=== PATIENT | female | born 1980 | race Two or more races ===

== ENCOUNTER 2019-10-06 09:52 | Emergency (ER) | payer OTHER ==
[~2019-10-06] VITALS: Ht 152.4 cm; Wt 97.5 kg
--- NOTE | 2019-10-06 09:55 | NUR ---
PT BIB SELF C/O CHEST AND BACK PAIN AND FEVER FOR 2 DAYS, PT IS AAOX4, NOT IN RESPIRATORY DISTRESS, HOOKED TO MOTORCYCLE MECHANIC, KEPT RESTED AND COMFORTABLE, WILL CONTINUE TO MONITOR.
--- NOTE | 2019-10-06 10:10 | NUR ---
SEEN AND EXAMINED BY .
--- NOTE | 2019-10-06 10:22 | NUR ---
CUT FILER AT BEDSIDE FOR XRAY.
--- NOTE | 2019-10-06 10:59 | NUR ---
COVID SWAB OBTAINED AND SENT TO LAB.
[2019-10-06 11:01] VITALS: BP 118/70
--- NOTE | 2019-10-06 11:01 | NUR ---
Patient given written and verbal discharge instructions. Patient verbalizes understanding of instructions. Patient is ambulatory with steady gait. Refuses offer of detention placement. Patient given list of available shelters in surrounding area.
== END 2019-10-06 11:02 | disposition home or self-care (01) ==
LOC: ER 09:52 → EDBD 09:52 → ER 11:02
DX: R07.9 Chest pain, unspecified (principal); R50.9 Fever, unspecified; Z20.828 Contact with and (suspected) exposure to other viral communicable diseases; Z59.0 Homelessness
CPT/HCPCS: 71045; 93005; 99285; C9803; U0003

== ENCOUNTER 2022-05-18 14:52 | Emergency (ER) | payer OTHER ==
[~2022-05-18] VITALS: Ht 154.9 cm; Wt 95.3 kg
[2022-05-18] MEDS ORDERED: METRONIDAZOLE 500 MG TABLET PO ONE (15:30)
[2022-05-18] MEDS ORDERED: DOXYCYCLINE HYCLATE (100 MG) 100 MG TABLET PO ONE (15:30)
[2022-05-18] MEDS ORDERED: TDAP [DIPH/PERTUSSIS/TET] 0.5 ML VIAL IM ONE ×3 (15:30→15:45)
[2022-05-18] MEDS ORDERED: ACETAMINOPHEN ES 500 MG TABLET PO ONE (15:30)
[2022-05-18] MEDS ORDERED: IBUPROFEN 600 MG TABLET PO ONE (15:30)
[2022-05-18] MEDS ORDERED: ACETAMINOPHEN ES 500 MG TABLET ONE (15:34)
[2022-05-18] MEDS ORDERED: IBUPROFEN 600 MG TABLET ONE (15:35)
[2022-05-18] MEDS ORDERED: METRONIDAZOLE 500 MG TABLET ONE (15:35)
[2022-05-18] MEDS ORDERED: DOXYCYCLINE HYCLATE (100 MG) 100 MG TABLET ONE (15:35)
--- NOTE | 2022-05-18 15:35 | NUR ---
TECH AT BEDSIDE FOR WOUND CARE
[2022-05-18] MEDS ORDERED: METR500T PO ×2 (15:45→15:54)
[2022-05-18] MEDS ORDERED: DOXY-326 PO ×2 (15:45→15:54)
--- NOTE | 2022-05-18 15:46 | NUR ---
PO MEDS GIVEN INDICATED, KATHARINE WELL.
--- NOTE | 2022-05-18 15:49 | NUR ---
TDAP GIVEN RIGHT DELTOID IM INDICATED, KATHARINE WELL.
--- NOTE | 2022-05-18 16:12 | NUR ---
Patient discharged to home in stable condition. Written and verbal after care instructions given. Patient verbalizes understanding of instruction.
[2022-05-18 16:13] VITALS: BP 130/75
== END 2022-05-18 16:13 | disposition home or self-care (01) ==
LOC: EDUNIT# 14:52 → ER 15:02
DX: S51.812A Laceration without foreign body of left forearm, initial encounter (principal); Z98.890 Other specified postprocedural states; Z88.0 Allergy status to penicillin; Z79.899 Other long term (current) drug therapy; Z59.00 Homelessness unspecified; W55.01XA Bitten by cat, initial encounter; Y93.89 Activity, other specified; Y92.89 Other specified places as the place of occurrence of the external cause; Y99.8 Other external cause status
CPT/HCPCS: 99284; 90471; 90715; A6403